=== PATIENT | female | born 1985 | race Caucasian/White ===

== ENCOUNTER → 2016-07-31 | Outpatient (CLI) | payer OTHER | LOC: LAB 10:39 | PROVIDERS: ATTEND Family Medicine | DX: N91.2 Amenorrhea, unspecified (principal) | CPT/HCPCS: 36415; 84702 ==

== ENCOUNTER → 2016-08-02 | Outpatient (CLI) | payer OTHER | LOC: LAB 11:47 | PROVIDERS: ATTEND Family Medicine | DX: N91.2 Amenorrhea, unspecified (principal); Z32.01 Encounter for pregnancy test, result positive | CPT/HCPCS: 36415; 84702 ==

== ENCOUNTER → 2016-08-08 | Outpatient (CLI) | payer OTHER ==
--- NOTE | 2016-08-08 15:42 | DI ---
US OB TRANSVAGINAL,08/08/2016 12:40 PM: Clinical History: Amenorrhea Previous Exam: April 25, 2011 Findings: Multiple transabdominal and endovaginal grayscale and color Doppler sonographic images are obtained t hrough the pelvis demonstrating a normal-appearing uterus measuring 8.6 x 4.4 x 5.1 cm with a gestati onal sac measuring 5 mm and corresponding with an estimated gestational age of 5 weeks zero days. There is also a cystic area adjacent to the gestational sac which most likely represents a subchorion ic hemorrhage. A few nabothian cysts are seen within the cervix. The ovaries were not seen. There was no free fluid identified. There were no detectable Doppler heart tones within the fetus and no visible pole at this time. Impression: 1. Gestational sac with no visible pole at this time.
== END ==
LOC: US 12:37
PROVIDERS: ATTEND Family Medicine
DX: Z36 Encounter for antenatal screening of mother (principal)
CPT/HCPCS: 76801; 76817

== ENCOUNTER → 2016-08-19 | Outpatient (CLI) | payer OTHER ==
--- NOTE | 2016-08-19 11:48 | DI ---
OBSTETRICAL ULTRASOUND, 08/19/2016 8:44 AM: Clinical History: Verify dates. Previous Exam: 08/08/2016. ADJUSTED LMP FROM THE PRIOR EXAM: 07/04/2016. There is a single IUP currently in unstable position. Amnionic fluid content is normal. heart r ate apparently was seen by the technologist at the heart rate was not recorded. Attempts at documenti ng cardiac activity with Doppler ultrasound was not successful. I was in the room at the time o f the Doppler scanning attempts. The yolk sac is visualized. Neither ovary is visualized but the adne xal regions are normal. CRL measurement is 5 mm. This measurement corresponds to an EGA value of 6 we eks 2 days. The US EDC is 04/12/2017.. EDC by adjusted LMP from the prior exam is 04/10/2017. Readin. There is a single IUP in unstable presentation with normal amniotic fluid content. The hear t rate currently was identified by the technologist, but could not be verified with color Doppler ult rasound when I was present. A followup study in one week is recommended to document viability. 2. The composite EGA is 6 weeks 2 days with an ultrasound EDC of 04/12/2017.
== END ==
LOC: US 08:39
PROVIDERS: ATTEND Family Medicine
DX: Z36 Encounter for antenatal screening of mother (principal)
CPT/HCPCS: 76801; 76817

== ENCOUNTER → 2016-08-19 | Outpatient (CLI) | payer OTHER | LOC: LAB 14:49 | PROVIDERS: ATTEND Family Medicine | DX: O36.80X0 Pregnancy with inconclusive fetal viability, not applicable or unspecified (principal) | CPT/HCPCS: 36415; 84702 ==

== ENCOUNTER → 2016-08-28 | Outpatient (CLI) | payer OTHER ==
--- NOTE | 2016-08-28 14:29 | DI ---
LIMITED OBSTETRICAL ULTRASOUND, 08/28/2016 1:26 PM Clinical History: Assess viability of . The previous study showed absent heart rate. Previous Exam: 08/19/2016. ADJUSTED LMP: 07/04/2016. There is a single IUP, but no heart rate is demonstrable. On the previous study, the yolk sac was wel l-defined on this study, the yolk sac appears collapsed. An estimated crown-rump length measurement i s 4 mm and this is actually smaller than on the previous study. In addition, the gestational sac size measurement for today is 16 x 16 x 18 mm and this barely shows any growth since the last exam. Reading: demise in the first trimester of .
== END ==
LOC: US 13:18
PROVIDERS: ATTEND Family Medicine
DX: O36.80X0 Pregnancy with inconclusive fetal viability, not applicable or unspecified (principal)
CPT/HCPCS: 76815

== ENCOUNTER → 2016-09-02 | Outpatient (CLI) | payer OTHER | LOC: MOB LAB 11:31 | PROVIDERS: ATTEND Family Medicine | DX: O03.9 Complete or unspecified spontaneous abortion without complication (principal) | CPT/HCPCS: 36415; 84702 ==

== ENCOUNTER → 2016-09-09 | Outpatient (CLI) | payer OTHER ==
--- NOTE | 2016-09-09 12:06 | DI ---
US PELVIC COMPLETE (NON OB),09/09/2016 8:42 AM: Clinical History: Miscarriage Previous Exam: None at this facility. Findings: Multiple transabdominal grayscale and color Doppler sonographic images are obtained through the pelvi s demonstrating a slightly heterogeneous uterus measuring 11.0 x 6.8 x 5.1 cm with an endometrial str ipe measuring 22 mm. The ovaries were normal with normal Doppler flow. There is no free fluid. Impression: Thickened, slightly heterogeneous endometrial stripe. This could represent retained products. Correla te clinically.
== END ==
LOC: US 08:39
PROVIDERS: ATTEND Family Medicine
DX: O03.9 Complete or unspecified spontaneous abortion without complication (principal)
CPT/HCPCS: 76856

== ENCOUNTER 2016-09-12 17:30 | Observation (INO) | payer OTHER ==
[2016-09-12] MEDS: Sodium Chloride 0.9% 1,000 ML PRIMARY IV ONE ×2 (17:52→19:10)
[2016-09-12] MEDS ORDERED: ONDANSETRON 4 MG/2 ML VIAL ONE (18:04)
[2016-09-12] MEDS: ONDANSETRON 4 MG/2 ML VIAL IVP ONE ×2 (18:05→19:10)
[2016-09-12 18:14] LABS: BASOPHILS # (AUTO) 0.06 10*3/UL; BASOPHILS % (AUTO) 0.4 % (0-1); EOSINOPHILS % (AUTO) 0.7 % (0-8); HEMOGLOBIN 13.4 g/dL (12.0-16.0); LYMPHOCYTES # (AUTO) 4.65 10*3/uL; MEAN CORPUSCULAR HGB CONC 34.4 g/dL (33-37); MEAN CORPUSCULAR VOLUME 87.2 FL (81-99); MEAN PLATELET VOLUME 9.1 FL (7.4-12.2); MONOCYTES # (AUTO) 0.64 10*3/UL (0.3-0.8); MONOCYTES % (AUTO) 4.6 % (5-15); NEUTROPHILS # (AUTO) 8.49 10*3/UL; NEUTROPHILS % (AUTO) 60.7 % (50-80); RED BLOOD COUNT 4.47 10^6/uL (4.20-5.40)
[2016-09-12 18:15] LABS: PLATELET MORPHOLOGY COMMENT NORMAL MORPHOLOGY (NORM); RBC MORPHOLOGY COMMENT NORMAL MORPHOLOGY (NORM); WBC MORPHOLOGY COMMENT NORMAL MORPHOLOGY (NORM)
[2016-09-12] MEDS ORDERED: MORPHINE SULFATE 4 MG/1 ML IVP ONE (19:00)
[2016-09-12] MEDS ORDERED: MORPHINE SULFATE 4 MG/1 ML ONE (19:09)
[2016-09-12] MEDS ORDERED: Lactated Ringers 1,000 ML PRIMARY IV ONE (19:10)
[2016-09-12] MEDS ORDERED: SUCCINYLCHOLINE CHLORIDE 20 MG/1 ML - 10 ML ONE ×2 (19:54)
[2016-09-12] MEDS ORDERED: KETAMINE 100 MG/1 ML - 5 ML ONE (19:55)
[2016-09-12] MEDS ORDERED: MIDAZOLAM 5 MG/1 ML ONE (19:55)
--- NOTE | 2016-09-12 20:00 | CONSULT ---
Consult Note - Consult Consult Date: 09/12/16 Reason for Consult: incomplete with vaginal bleeding Requesting Physician: Dr. Borden Primary Care Provider: Richy Castro MD - History of Present Illness History of Present Illness: The patient is a 31-year-old status post a missed AB around 8 weeks' gestation who was prescribed Cytotec on 08/29/2016 and passed tissue on 2016. Patient stopped bleeding and was doing well. Patient did have an ultrasound on 09/09/2016 and was informed that her ultrasound was normal. However, today the patient was at work and passed a large blood clot and has been bleeding ever since. In the emergency room tonight the patient went through 20 pads. The emergency room physician examined the patient and there was just blood flowing from the patient's cervix. The patient feels slightly lightheaded. The patient has been tachycardic in the 110s to 120. No fever or chills. Past medical history without hypertension or diabetes. Past surgical history 1 and vaginal delivery The patient is allergic to clindamycin with an anaphylactic reaction. OB history without complications of the or vaginal delivery. No tobacco, no alcohol no drugs. Past Medical History Tobacco Use: Never Smoker Substance Use Type: None Medication / Allergies Home Medications: Home Medications Medication Instructions Recorded Confirmed Type Desogestrel-Ethinyl Estradiol 1 tab PO DAILY #28 tab 04/18/14 Clinic [Desogen 28 Day Tablet] Hydrocodone Bit/Acetaminophen 1 - 2 tab PO Q4-6H #30 tab 09/12/16 Clinic [[place] 7.5-325 Tablet] Allergies/Adverse Reactions: Allergies Allergy/AdvReac Type Severity Reaction Status Date / Time clindamycin Allergy SWELLING Verified 09/12/16 17:57 Exam - Vitals Vital Signs: Vital Signs Temperature 98.5 F Temperature Source Temporal Artery Scan Pulse Rate [Pulse Oximeter 123 Right] Respiratory Rate 20 Blood Pressure [Left Arm] 106/82 Pulse Ox 97 Oxygen Delivery Method Room Air Height 5 ft 8 in Weight 192 lb - General General Appearance: POSITIVE: No Acute Distress, Cooperative - Respiratory Respiratory Exam: POSITIVE: Clear to Auscultation - Bilaterally - Cardiovascular Cardiovascular Exam: POSITIVE: Tachycardia - GI/Abdominal GI/Abdominal Exam: POSITIVE: Normal Bowel Sounds, Non Tender (Except suprapubically the patient was slightly tender. No guarding or rebound.), Non Distended, Soft - Rectal Rectal Exam: POSITIVE: Deferred - Exam: POSITIVE: Vaginal Bleeding (Speculum exam not done by me since I will examine her in the operating room and the ER physician did a speculum exam and there was positive bleeding from the cervix.) Results - Labs CBC and BMP: 09/12/16 17:52 Labs - Last 24 Hours: Laboratory Results 09/12/16 Range/Units 17:52 WBC 13.98 H (4.8-10.8) 10^3/uL RBC 4.47 (4.20-5.40) 10^6/uL Hgb 13.4 (12.0-16.0) g/dL Hct 39.0 (37.0-47.0) % MCV 87.2 (81-99) FL MCH 30.0 (27-31) PG MCHC 34.4 (33-37) g/dL RDW Std Deviation 42.6 (39-50) fL RDW Coeff of Zev 13.8 (11.5-14.5) % Plt Count 409 H (140-350) 10*3/uL MPV 9.1 (7.4-12.2) FL Immature Gran % (Auto) 0.3 (0-5) % Neut % (Auto) 60.7 (50-80) % Lymph % (Auto) 33.3 (10-50) % [place] % (Auto) 4.6 L (5-15) % Eos % (Auto) 0.7 (0-8) % Baso % (Auto) 0.4 (0-1) % Immature Gran # (Auto) 0.04 10*3/UL Neut # (Auto) 8.49 10*3/UL Lymph # (Auto) 4.65 10*3/uL [place] # (Auto) 0.64 (0.3-0.8) 10*3/UL Eos # (Auto) 0.10 10*3/UL Baso # (Auto) 0.06 10*3/UL WBC Morphology Comment Normal morphology (NORM) Plt Morphology Comment Normal morphology (NORM) RBC Morph Comment Normal morphology (NORM) PT 10.2 (9.7-11.4) secs INR 0.99 (0.00-5.90) N/A APTT 26.0 (22.6-31.3) SECS Assessment and Plan - Assessment / Plan Additional Assessment/Plan Details: Assessment: Incomplete AB status post Cytotec administration with being prescribed on 08/29/2016 and the patient passed some tissue on 09/02/2016. The patient did have a repeat ultrasound on 09 September which showed an endometrial stripe of 22 mm and possible retained products of conception. The patient had an ultrasound this evening which showed an endometrial stripe of 17 mm with the tissue at the fundus. Previously, the patient's uterus measured 11 x 7 x 5 cm on 09/09/2016. The patient is Rh+. The patient's initial hemoglobin tonight was 13.9 Plan: The risks, benefits, alternatives and indication of a suction D&C were discussed with the patient in detail. We discussed the risk of infection, bleeding, pain, hemorrhage, blood transfusion with associated risks, damage to bowel, bladder, nerve, vessel, if uterine perforation were to occur or if bleeding continues and the patient would need a hysterectomy. We did discuss that the patient would not be able to conceive again and have more children naturally if a hysterectomy was performed. The patient expressed understanding and the consent form was signed. The consent form was also signed for blood. The operating room crew was called in and the operating room is getting ready currently. Anesthesia is aware of the patient's bleeding. The patient has been typed and crossed for 2 units of blood. Anesthesia may give blood intraoperatively depending upon the patient's symptoms. The patient does not have hypertension or asthma and we may have to get Cytotec , Hemabate, or Methergine and possibly Pitocin although Pitocin receptors this early in gestation are not usually active.
[2016-09-12 20:10] LABS: BLOOD UREA NITROGEN 7 mg/dL (7-22); BUN/CREATININE RATIO 8.75 (6-20); CALCIUM 9.2 mg/dL (8.7-10.7); EST GLOMERULAR FILTRATION > 60 (>60 ml/min/1.73m(2)); SERUM ALBUMIN 4.3 g/dL (3.5-4.8)
[2016-09-12] MEDS ORDERED: MISOPROSTOL 200 MCG TABLET ONE (20:14)
[2016-09-12] MEDS ORDERED: fentaNYL Inj 100 MCG/2 ML VIAL ONE (20:16)
[2016-09-12] MEDS ORDERED: PHENYLEPHRINE 10,000 MCG/1 ML VIAL ONE (20:23)
[2016-09-12] MEDS ORDERED: Sodium Chloride 0.9% 100 ML IV ONE (20:24)
[2016-09-12] MEDS ORDERED: METHYLERGONOVINE MALEATE 0.2 MG/1 ML VIAL IM ONE (20:44)
[2016-09-12] MEDS ORDERED: MISOPROSTOL 200 MCG TABLET RECTAL ONE (20:54)
[2016-09-12 21:11] LABS: HEMATOCRIT 27.5 % (37.0-47.0); HEMOGLOBIN 9.2 g/dL (12.0-16.0)
[2016-09-12] MEDS ORDERED: ATROPINE SULFATE 0.4 MG/1 ML VIAL IVP PRN (21:12)
[2016-09-12] MEDS ORDERED: Ondansetron ODT Tab 8 MG TAB PO PRN (21:12)
[2016-09-12] MEDS ORDERED: fentaNYL Inj 100 MCG/2 ML VIAL IVP PRN (21:12)
[2016-09-12] MEDS ORDERED: NORMAL SALINE 10 ML SYRINGE FLUSH IVP PRN ×2 (21:12→21:58)
[2016-09-12] MEDS ORDERED: Lactated Ringers 1,000 ML PRIMARY IV SCH (21:15)
--- NOTE | 2016-09-12 21:22 | DI ---
US PELVIC LIMITED (NON-OB),09/12/2016 6:08 PM: Clinical History: Heavy bleeding and miscarriage on September 02. Previous Exam: September 09, 2016 Findings: Multiple grayscale and color Doppler sonographic images are obtained transabdominally through the pel vis, and demonstrate a normal-appearing uterus with some slightly heterogeneous echogenicity within t he endometrium. The endometrial stripe measures 17 mm. The overlying urinary bladder is unremarkable. The gestational sac seen on the prior exam has involuted and is not visible on today's exam. Impression: Still some residual heterogeneity within the endometrial canal most consistent with progressive misca rriage.
[2016-09-12] MEDS: HYDROmorphone 2 MG/1 ML IVP PRN ×2 (21:25→21:32)
--- NOTE | 2016-09-12 21:28 | OB.OP.NOTE ---
Operative Report Surgeon: Bishnu Superintendent [employer]: Paco Villalta MD Anesthesia Type: General Anesthesia Provider: Chrissy Sanz CRNA (With LMA) Surgery Date: 09/12/16 Preoperative Diagnosis: Incomplete AB. Vaginal bleeding. History of missed AB with Cytotec administration on 08/29/2016 and then expulsion of some tissue on 09/02/2016. Then heavy vaginal bleeding today Postoperative Diagnosis: Same Procedure: Exam under anesthesia. Suction D&C Estimated Blood Loss (mL): 100 Fluids: 2000 mL normal saline in the emergency room. 1000 mL in operating room. 100 mL of urine by catheter in operating room. Mefoxin 2 g IV prior to and at the beginning of the suction D&C. Methergine 0.2 mg IM after suction D& C. Cytotec 800 g rectally after D&C Complications: None apparent No evidence of uterine perforation during suction D&C Findings at Surgery: Exam under anesthesia showed anteverted uterus The uterus sounded to 10.5 cm Tissue was obtained with suction D&C There was a good crigh in all 4 quadrants at the completion of the D&C Minimal bleeding at the completion of the D&C Indications for the Procedure: The patient is a 31-year-old who had a missed AB at 8 weeks and was prescribed Cytotec on 08/29/2016. The patient had passage of tissue on 2016 and then a follow-up ultrasound on 09/09/2016 which showed an endometrial stripe of 2.2 cm and the possibility of retained products of conception. The patient presented today after starting to bleed with clots at 1600 hrs. today and the patient continued to bleed in the emergency room. The patient was bleeding quite heavily and 20 pads were changed in the emergency room. An ultrasound was completed which showed retained products of conception at the fundus. Dr. Villalta and I were consulted from the emergency room. The risks, benefits, alternatives and indications of a suction D&C were discussed with the patient. The consent form was signed and the patient was brought to the operating room. Description of Procedure: The patient was brought to the operating room and underwent general anesthesia with LMA. The patient was prepped and draped sterilely. A timeout was completed and the patient and procedure was identified. A straight catheter was used to obtain about 100 mL of urine. A weighted speculum was placed posteriorly and a Cr retractor was placed anteriorly and the cervix was visualized and grasped with a single-tooth tenaculum on the anterior lip of the cervix. A uterine sound was used to sound the uterus and was 10.5 cm. There was no evidence of uterine perforation. A #9 curved suction curette was requested. A #30 Hanks dilator was used and the patient was already dilated to a 30 Rei dilator. The #9 curved curet was used after testing the suction machine and the suction was set around 35. The #9 curved curet was used in the usual fashion and tissue was obtained. There was no evidence of uterine perforation. With several passes, tissue was obtained. Actually, a significant amount of products of conception was obtained. At no time was there any evidence of uterine perforation. A sharp curette was then used to gently curet all 4 quadrants of the lining of the uterus. There was no evidence of uterine perforation. There was a good crigh in all 4 quadrants. I did use the #9 curved curet 1 more time and a small amount of tissue was obtained around 3:00 and then the curette was used again and there was a good crigh and all 4 quadrants and the procedure was completed. I requested that anesthesia administer Methergine 0.2 mg IM. The single-tooth tenaculum was removed and the weighted speculum was removed and a bimanual exam was completed and the uterus had decreased in size. There was a small amount of bleeding from the tenaculum site and even after pressure was held the tenaculum site on the right side had some bleeding and I put a [id number] suture of 4-0 Vicryl suture using an SH 1 needle. This allowed for hemostasis. By that time hemostasis had occurred from the tenaculum site on the patient's left side of her anterior lip of the cervix. There was minimal bleeding from the cervix itself. The procedure was completed. Cytotec 800 g rectally was administered to continue to have the uterus contract for hemostasis. The patient was awakened from her general anesthesia with LMA. The patient was brought to the PACU in stable condition. During the procedure, the patient did not receive blood. Anesthesia thought that her vital signs and pulse were stable. An H&H would be obtained in the PACU. The patient will be observed overnight on the MSU and a CBC would be checked in the morning also. If the patient becomes tachycardic or hypotensive, blood will be administered. Abdominal exam would also be performed to ensure the patient was not bleeding and her abdomen. Of note, the patient did receive Mefoxin 2 g IV prior to the procedure and just at the beginning of the procedure. Sponge lap and needle counts were correct 2. Plan: The patient was recover in the PACU and then the MSU overnight. A CBC would be obtained in the morning. The patient will be observed.
[2016-09-12] MEDS ORDERED: KETOROLAC 15 MG/1 ML VIAL IVP ONE (21:30)
[2016-09-12] MEDS ORDERED: KETOROLAC 30 MG/1 ML VIAL ONE (21:37)
--- NOTE | 2016-09-12 22:09 | PDOC(PROG) ---
Subjective Post Op Day: 0 Pain Management: PO (And IV Dilaudid in PACU and IV Toradol and PACU) Baires Catheter: No Flatus: No Diet: Clear Liquids (Advance as tolerated) Ambulating: No Concerns / Additional Information: Patient is hungry and patient would like to take a shower. Patient states she feels much better currently. Not lightheaded in bed. Objective - General General Appearance: POSITIVE: No Acute Distress, Cooperative - Abdomen Other Abdominal Exam Details: Abdomen soft with appropriate tenderness without guarding or rebound Assesstment / Plan Assessment / Plan: Postoperative day #0 status post suction D&C for incomplete AB. Patient's H&H is 9 and 27.5 postoperatively in the PACU. [facility]. She would like to take a shower. The patient's blood pressure was good and her pulse was about 107. Pulse ox was good Plan: Check a CBC in the morning Toradol 15 mg IV every 6 hours starting at 5:00 in the morning since patient received 1 dose in the PACU Patient may shower in a couple hours in a shower chair with assistance. We discussed the fact that she may be lightheaded once the warm water dilates her vessels but patient is insistent currently that she needs to take a shower soon secondary to all the blood staining on her lower extremities from the bleeding this afternoon and this evening. I expressed understanding but would like her to wait a couple hours and then have assistance and use a shower chair Continue to follow patient closely. We did discuss that her H&H may decrease even more and she may need blood depending upon what her H&H is in the morning. Patient expressed understanding.
[2016-09-12] MEDS: Lactated Ringers 1,000 ML PRIMARY IV SCH (22:40)
[2016-09-12] MEDS: HYDROcodone-APAP 5 MG -325 MG TABLET PO PRN (22:40)
[2016-09-12] MEDS ORDERED: LIDOCAINE W/ SODIUM BICARB 0.5 ML SYR SUBD PRN (23:07)
[2016-09-13] MEDS: HYDROcodone-APAP 5 MG -325 MG TABLET PO PRN ×5 (03:01→19:09)
[2016-09-13] MEDS: ONDANSETRON 4 MG/2 ML VIAL IVP PRN ×4 (03:02→15:00)
[2016-09-13] MEDS: KETOROLAC 15 MG/1 ML VIAL IVP SCH ×4 (04:50→19:15)
[2016-09-13 05:14] LABS: BASOPHILS # (AUTO) 0.04 10*3/UL; BASOPHILS % (AUTO) 0.3 % (0-1); EOSINOPHILS # (AUTO) 0.07 10*3/UL; EOSINOPHILS % (AUTO) 0.5 % (0-8); HEMATOCRIT 25.8 % (37.0-47.0); HEMOGLOBIN 8.5 g/dL (12.0-16.0); LYMPHOCYTES # (AUTO) 3.72 10*3/uL; MEAN CORPUSCULAR HEMOGLOBIN 29.8 PG (27-31); MEAN CORPUSCULAR HGB CONC 32.9 g/dL (33-37); MEAN CORPUSCULAR VOLUME 90.5 FL (81-99); MEAN PLATELET VOLUME 9.3 FL (7.4-12.2); MONOCYTES # (AUTO) 0.68 10*3/UL (0.3-0.8); MONOCYTES % (AUTO) 5.3 % (5-15); NEUTROPHILS # (AUTO) 8.35 10*3/UL; NEUTROPHILS % (AUTO) 64.6 % (50-80); RED BLOOD COUNT 2.85 10^6/uL (4.20-5.40)
[2016-09-13 05:15] LABS: PLATELET MORPHOLOGY COMMENT NORMAL MORPHOLOGY (NORM); RBC MORPHOLOGY COMMENT NORMAL MORPHOLOGY (NORM); WBC MORPHOLOGY COMMENT NORMAL MORPHOLOGY (NORM)
--- NOTE | 2016-09-13 06:12 | PDOC ---
Female Problem HPI - General Chief Complaint: Vag Complaint/Bleed, <20WK IUP Stated Complaint: vaginal bleeding,passing clots Date Seen by Provider: 09/12/16 Time Seen by Provider: 17:50 Source: POSITIVE: Patient Exam Limitations: POSITIVE: No limitations Nurse's Notes Reviewed & Considered: Yes - History of Present Illness Initial Comments: The patient is a 31-year-old female. She presents to the emergency room complaining of heavy vaginal bleeding. 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 She states that she has used 24 pads since the onset of her bleeding. She also complains of abdominal cramping. She had a spontaneous miscarriage, which was assisted by Cytotec for 4 days, on September 02. She states that she has had some spotting since. She states she had an ultrasound done 3 days ago and the patient states that she was told that this study was normal. However, review of the radiologist's report of this study indicated that it was compatible with retained products of conception. Patient states that she has felt "lightheaded ", but has had no syncope. She's been nauseated. No head or chest pain. She is not taking any medications except"some pain meds". Body Location Affected: REPORTS: Genitalia (Heavy vaginal bleeding 10 days after miscarriage as above) Timing: REPORTS: Abrupt Duration: 1-3 hours (Approximately 1-1/2 hours) Severity: Severe Quality: REPORTS: Cramping (Some lower abdominal cramping) Context: REPORTS: Recent Miscarriage Location of Pain: REPORTS: Pelvic Cramping Vaginal Bleeding: REPORTS: Abnormal Bleeding, More Severe Than Periods, Passing Clots. DENIES: Passing Tissue : REPORTS: Abnormal Periods, Other (Spontaneous miscarriage assisted by Cytotec 10 days SENIOR RESEARCH FELLOW) Sexual History: REPORTS: Active Urinary Symptoms: DENIES: Blood in Urine, Frequent Urination, Discomfort w/ Urination, Burning w/ Urination, Urinary Urgency, Painful Urination, Other Discharge: DENIES: Vaginal Discharge, Vag Fluid Leak- , Breast Discharge, Other Similar Symptoms Previously: No Recent Care Received: REPORTS: Recently Seen, Treated by MD (As above) Any Prior Injuries Related to Current Complaint?: No - Patient Home Medications Home Medications: Home Medications Desogestrel-Ethinyl Estradiol [Desogen 28 Day Tablet] 1 tab PO DAILY #28 tab 08/27 Hydrocodone Bit/Acetaminophen [[place] 7.5-325 Tablet] 1 - 2 tab PO Q4-6H #30 tab 09/12/16 - Patient Allergies Allergies/Adverse Reactions: Allergies Allergy/AdvReac Type Severity Reaction Status Date / Time clindamycin Allergy SWELLING Verified 09/12/16 22:25 Past Medical History - heen HEENT History: Denies History Cardiovascular History: Denies History Respiratory History: Denies History Gastrointestinal History: Denies History, Gallbladder Disease Additional Gastrointestinal History: Had gallbladder removed Genitourinary History: Denies History Endocrine History: Denies History, Other (please comment) Additional Endocrine History: INSULIN RESISTANCE Musculoskeletal History: Denies History Prosthesis or Implant: No Neurological History: Denies History Blood Disorders: Denies History Psychiatric History: Denies History History of Sexually Transmitted Diseases: No LMP: 06/23/16 Obstetrical History: Delivery, Other (please comment) Additional Obstetrical History: recent spontaneous : 3 Para: 3 Cancer History: Denies History In Past Year Been Physically Harmed or Verbally Threatened: No History of MDRO: No History of Other Communicable Diseases: No Tobacco Use: Never Smoker Alcohol Use: Rarely Substance Use Type: None Previous Surgical History: Yes Type / Date of Surgery: . gallbladder Anesthesia Reactions: No Malignant Hyperthermia: No Significant Family History: Asthma Additional Family History: Mother has asthma Past Medical History Reviewed: Reviewed - No Changes ROS - Limitations ROS Limitations: No Limitations Constitution: REPORTS: Denies Symptoms Cardiovascular: REPORTS: Denies Cardiac Symptoms Respiratory: REPORTS: Denies Resp Symptoms Neurological: REPORTS: Denies Neuro Symptoms Gastrointestinal: REPORTS: Denies GI Symptoms Endocrine: REPORTS: Denies Symptoms Musculoskeletal: REPORTS: Denies MS Symptoms Genitourinary: REPORTS: Other (Heavy post miscarriage vaginal bleeding as above) Eyes: REPORTS: Denies Symptoms ENT: REPORTS: Denies Symptoms Skin: REPORTS: Denies Skin Symptoms Lympathic: REPORTS: Denies Lympathic Symptoms Immunologic: POSITIVE: Denies Symptoms Psychiatric: POSITIVE: Denies Psych Symptoms Female Genitourinary Exam - General Appearance General Appearance: POSITIVE: Alert, Cooperative, No Acute Distress, No Evidence of Trauma, Anxious - HEENT HEENT: POSITIVE: Head Inspection Nml, Eyes Inspection Nml, Ears Inspection Nml, Nose Inspection Nml, Oral/Dental Inspect. Nml, Pharynx Inspect. Nml, PERRL, EOMI - Neck Neck: POSITIVE: Normal Inspection, No Apparent Injury - Respiratory Respiratory: POSITIVE: No Respiratory Distress, Breath Sounds Normal, Chest Non- Tender - Cardiovascular Cardiovascular: POSITIVE: Regular Rate and Rhythm, Heart Sounds Normal, Equal Pulses, Strong Pulses Peripheral Pulses: Radial (R): 2+, Radial (L): 2+ - Abdomen Abdomen: POSITIVE: Soft, Normal Bowel Sounds, Non-Tender, No Distention, No Organomegaly - Back Back: POSITIVE: Normal Inspection - Genital / Rectal Pelvic Exam: POSITIVE: Cervix (Open), Vagina (Prominent bleeding per vagina; many clots with active bleeding), Uterus (Nontender), Adnexa (Nontender), External Exam Normal, Vaginal Bleeding, Blood In Vaginal Vault, Clots in vaginal Vault, Cervical Dilation, Enlarged Uterus. NEGATIVE: Speculum Exam Normal (Speculum examination shows many clots in the vagina and prominent active vaginal bleeding; visualization of cervix difficult due to extent of ongoing bleeding), Tissue Present in Cervix, Tissue Present in Vagina, Cervical Motion Tender, Adnexal Tenderness, Adnexal Mass, Tender Uterus, Perineal Hematoma - Skin Skin: POSITIVE: Intact, Normal For Race, Warm, Dry, No Rash - Extremities Extremity: Non-Tender: (All Extremities), Normal ROM: (All Extremities), Normal Inspection: (All Extremities) - Neurological / Psychological Neurological: POSITIVE: Affect Apporpriate, Oriented X3, 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 Lab Results Reviewed: Yes Lab Results:: Laboratory Results 09/12/16 09/12/16 09/12/16 Range/Units 17:52 19:10 21:08 WBC 13.98 H (4.8-10.8) 10^3/uL RBC 4.47 (4.20-5.40) 10^6/uL Hgb 13.4 9.2 L (12.0-16.0) g/dL Hct 39.0 27.5 L (37.0-47.0) % MCV 87.2 (81-99) FL MCH 30.0 (27-31) PG MCHC 34.4 (33-37) g/dL RDW Std Deviation 42.6 (39-50) fL RDW Coeff of Zev 13.8 (11.5-14.5) % Plt Count 409 H (140-350) 10*3/uL MPV 9.1 (7.4-12.2) FL Immature Gran % (Auto) 0.3 (0-5) % Neut % (Auto) 60.7 (50-80) % Lymph % (Auto) 33.3 (10-50) % Louisa % (Auto) 4.6 L (5-15) % Eos % (Auto) 0.7 (0-8) % Baso % (Auto) 0.4 (0-1) % Immature Gran # (Auto) 0.04 10*3/UL Neut # (Auto) 8.49 10*3/UL Lymph # (Auto) 4.65 10*3/uL Louisa # (Auto) 0.64 (0.3-0.8) 10*3/UL Eos # (Auto) 0.10 10*3/UL Baso # (Auto) 0.06 10*3/UL WBC Morphology Comment Normal morphology (NORM) Plt Morphology Comment Normal morphology (NORM) RBC Morph Comment Normal morphology (NORM) PT 10.2 (9.7-11.4) secs INR 0.99 (0.00-5.90) N/A APTT 26.0 (22.6-31.3) SECS Sodium 138 (135-145) meq/L Potassium 3.6 L (3.8-5.2) meq/L Chloride 103 (98-112) meq/L Carbon Dioxide 21 L (23-33) meq/L Anion Gap 14 (5-20) BUN 7 (7-22) mg/dL Creatinine 0.8 (0.50-1.20) mg/dL Estimated GFR > 60 (>60 ml/min/1.73m(2)) BUN/Creatinine Ratio 8.75 (6-20) Glucose 116 H (78-110) mg/dL Calculated Osmolality 284.0 (267-292) mOsm/kg Calcium 9.2 (8.7-10.7) mg/dL Total Bilirubin 1.0 (0.3-1.2) mg/dL AST 51 H (8-39) IU/L ALT 34 (9-52) IU/L Alkaline Phosphatase 59 (38-126) IU/L Total Protein 7.5 (6.1-8.0) g/dL Albumin 4.3 (3.5-4.8) g/dL Globulin 3.3 (2.50-4.10) g/dL Albumin/Globulin Ratio 1.30 (1.3-2.0) mg/g Blood Type O POSITIVE Antibody Screen Negative Crossmatch See Detail - Patient's Progress Pain Medication Addressed: POSITIVE: Yes (Morphine, 4 mg IV along with 4 mg of Zofran IV) School/Work Release Addressed: POSITIVE: Not Applicable Re-Examine Time: 18:30 Re-Examine Comment: Results of ultrasound discussed with patient, patient did achieve some relief of her pain with morphine. Status: POSITIVE: Unchanged, Re-Examined Rhogam Given: No (blood type is O+) - Consult Consult (If Yes, Name of Consulting MD & Time Called): Yes (Dr. Villalta and Dr. Goetz, who LAST TRIMMER, 1830) Consulting MD will see pt:: POSITIVE: [place] ED, [facility] [place] Ad[place] Counseled: POSITIVE: Patient, Family, RE: Lab Results, RE: DX, RE: Need for F/U Patient Care Time - Estimated PCT Patient Care Time (In Minutes): 50 Vital Signs - Recent Vital Signs Vital Signs: Vital Signs (Last 8 hours) Temp Pulse Pulse Resp BP BP Pulse Ox 09/13/16 04:50 98.2 F 104 H 18 99/55 93 09/13/16 00:02 97.4 F 100 20 103/59 96 09/12/16 23:06 97.6 F 102 H 20 109/55 94 09/12/16 22:34 98.3 F 104 H 18 103/63 94 09/12/16 22:08 100 18 - VS Reviewed Vital Signs Reviewed: Yes Discharge Clinical Impression: Abnormal vaginal bleeding, Retained products of conception after delivery with complications, Nausea and vomiting Discharge Disposition: Transferred to OR Condition: Fair Date Decision to Admit to Inpatient: 09/12/16 Time Decision to Admit to Inpatient: 18:45
[2016-09-13] MEDS: Lactated Ringers 1,000 ML PRIMARY IV SCH ×2 (07:07→19:31)
--- NOTE | 2016-09-13 09:49 | CRNA.PROGR ---
Anesthesia Note Anesthesia Progress Note: Up and about. Showered last night. Wants to shower this am. No nausea. Crampy. Little bleeding. Laboratory Results 09/12/16 09/12/16 09/12/16 Range/Units 17:52 19:10 21:08 WBC 13.98 H (4.8-10.8) 10^3/uL RBC 4.47 (4.20-5.40) 10^6/uL Hgb 13.4 9.2 L (12.0-16.0) g/dL Hct 39.0 27.5 L (37.0-47.0) % MCV 87.2 (81-99) FL MCH 30.0 (27-31) PG MCHC 34.4 (33-37) g/dL RDW Std Deviation 42.6 (39-50) fL RDW Coeff of Zev 13.8 (11.5-14.5) % Plt Count 409 H (140-350) 10*3/uL MPV 9.1 (7.4-12.2) FL Immature Gran % (Auto) 0.3 (0-5) % Neut % (Auto) 60.7 (50-80) % Lymph % (Auto) 33.3 (10-50) % [place] % (Auto) 4.6 L (5-15) % Eos % (Auto) 0.7 (0-8) % Baso % (Auto) 0.4 (0-1) % Immature Gran # (Auto) 0.04 10*3/UL Neut # (Auto) 8.49 10*3/UL Lymph # (Auto) 4.65 10*3/uL [place] # (Auto) 0.64 (0.3-0.8) 10*3/UL Eos # (Auto) 0.10 10*3/UL Baso # (Auto) 0.06 10*3/UL WBC Morphology Comment Normal morphology (NORM) Plt Morphology Comment Normal morphology (NORM) RBC Morph Comment Normal morphology (NORM) PT 10.2 (9.7-11.4) secs INR 0.99 (0.00-5.90) N/A APTT 26.0 (22.6-31.3) SECS Sodium 138 (135-145) meq/L Potassium 3.6 L (3.8-5.2) meq/L Chloride 103 (98-112) meq/L Carbon Dioxide 21 L (23-33) meq/L Anion Gap 14 (5-20) BUN 7 (7-22) mg/dL Creatinine 0.8 (0.50-1.20) mg/dL Estimated GFR > 60 (>60 ml/min/1.73m(2)) BUN/Creatinine Ratio 8.75 (6-20) Glucose 116 H (78-110) mg/dL Calculated Osmolality 284.0 (267-292) mOsm/kg Calcium 9.2 (8.7-10.7) mg/dL Total Bilirubin 1.0 (0.3-1.2) mg/dL AST 51 H (8-39) IU/L ALT 34 (9-52) IU/L Alkaline Phosphatase 59 (38-126) IU/L Total Protein 7.5 (6.1-8.0) g/dL Albumin 4.3 (3.5-4.8) g/dL Globulin 3.3 (2.50-4.10) g/dL Albumin/Globulin Ratio 1.30 (1.3-2.0) mg/g Blood Type O POSITIVE Antibody Screen Negative Crossmatch See Detail 09/13/16 Range/Units 04:54 WBC 12.92 H (4.8-10.8) 10^3/uL RBC 2.85 L (4.20-5.40) 10^6/uL Hgb 8.5 L (12.0-16.0) g/dL Hct 25.8 L (37.0-47.0) % MCV 90.5 (81-99) FL MCH 29.8 (27-31) PG MCHC 32.9 L (33-37) g/dL RDW Std Deviation 43.0 (39-50) fL RDW Coeff of Zev 13.5 (11.5-14.5) % Plt Count 273 (140-350) 10*3/uL MPV 9.3 (7.4-12.2) FL Immature Gran % (Auto) 0.5 (0-5) % Neut % (Auto) 64.6 (50-80) % Lymph % (Auto) 28.8 (10-50) % [place] % (Auto) 5.3 (5-15) % Eos % (Auto) 0.5 (0-8) % Baso % (Auto) 0.3 (0-1) % Immature Gran # (Auto) 0.06 10*3/UL Neut # (Auto) 8.35 10*3/UL Lymph # (Auto) 3.72 10*3/uL [place] # (Auto) 0.68 (0.3-0.8) 10*3/UL Eos # (Auto) 0.07 10*3/UL Baso # (Auto) 0.04 10*3/UL WBC Morphology Comment Normal morphology (NORM) Plt Morphology Comment Normal morphology (NORM) RBC Morph Comment Normal morphology (NORM) PT (9.7-11.4) secs INR (0.00-5.90) N/A APTT (22.6-31.3) SECS Sodium (135-145) meq/L Potassium (3.8-5.2) meq/L Chloride (98-112) meq/L Carbon Dioxide (23-33) meq/L Anion Gap (5-20) BUN (7-22) mg/dL Creatinine (0.50-1.20) mg/dL Estimated GFR (>60 ml/min/1.73m(2)) BUN/Creatinine Ratio (6-20) Glucose (78-110) mg/dL Calculated Osmolality (267-292) mOsm/kg Calcium (8.7-10.7) mg/dL Total Bilirubin (0.3-1.2) mg/dL AST (8-39) IU/L ALT (9-52) IU/L Alkaline Phosphatase (38-126) IU/L Total Protein (6.1-8.0) g/dL Albumin (3.5-4.8) g/dL Globulin (2.50-4.10) g/dL Albumin/Globulin Ratio (1.3-2.0) mg/g Blood Type Antibody Screen Crossmatch Anemic. States a little dizzy standing. MD offering transfusion. Pt states she doesn't have time to allow her body to rebuild blood. No apparent anesthetic difficulties. Chrissy Sanz MS, SERVICES ACCOUNT MANAGER
[2016-09-13] MEDS ORDERED: ACETAMINOPHEN 325 MG TABLET PO ONE (11:16)
[2016-09-13] MEDS ORDERED: diphenhydrAMINE 25 MG CAPSULE PO ONE ×2 (11:16→15:35)
[2016-09-13] MEDS ORDERED: Sodium Chloride 0.9% 500 ML PRIMARY IV ONE ×2 (11:16→15:36)
--- NOTE | 2016-09-13 11:24 | PDOC(PROG) ---
Subjective Post Op Day: 1 Pain Management: PO (And IV Toradol) Baires Catheter: No Flatus: Yes Diet: Regular Concerns / Additional Information: The patient is lightheaded even when sitting in bed. She took a shower early this morning and then another one an hour ago and she sat in the chair in the shower. She was lightheaded in the shower. Patient states the nurses of in talking with her about a blood transfusion in the patient states that she thinks she would feel better if she had blood. The patient is eating a regular diet. The patient is not ambulating because she is lightheaded when sitting in bed. Objective - General General Appearance: POSITIVE: No Acute Distress, Cooperative - Cardiovacular Cardiovascular Exam: POSITIVE: Tachycardia (Minimally tachycardic) Extremities: Negative Ck's - Bilaterally - Respiratory Respiratory Exam: POSITIVE: Clear to Auscultation - Bilaterally - Abdomen Bowel Sounds: Present Abdominal Wound Assessment: Asymptomatic (No guarding or rebound but slightly tender suprapubically) - - Additional Details: Orthostatics were completed. Blood pressure lying down was 113/91 and pulse was 92 Blood pressure sitting was 97/54 and pulse was 100 Blood pressure standing was 113/76 and pulse was 100 Assesstment / Plan Assessment / Plan: Assessment: Postoperative day #1 status post suction D&C for incomplete AB with H&H of 8 and 25 this morning. Patient is symptomatic with lightheadedness even when sitting in bed. Orthostatics are not positive but with patient symptomatic with lightheadedness and dizziness just sitting in bed, it will be prudent to administer at least 1 unit of packed red blood cells. Plan: Premedicate with Tylenol 650 mg by mouth and Benadryl 25 mg by mouth 1 unit of packed red blood cells over 2 hours The patient will be reassessed after transfusion. The patient understands that she may feel improved and better after one unit of packed red blood cells or she may require another unit of packed red blood cells. The patient has been previously typed and crossed. An order has been written to transfuse 1 unit. The indications patient's is symptomatic with lightheadedness. The patient expressed understanding with the above plan.
--- NOTE | 2016-09-13 17:54 | PDOC(PROG) ---
Subjective Post Op Day: 1 Pain Management: PO Baires Catheter: No Flatus: Yes Diet: Regular Ambulating: Yes Concerns / Additional Information: The patient feels much better now that she had her second unit of blood. She is not lightheaded. The patient feels very comfortable going home a little later. Objective - General General Appearance: POSITIVE: No Acute Distress, Cooperative - Cardiovacular Cardiovascular Exam: POSITIVE: RRR Extremities: Negative Ck's - Bilaterally - Respiratory Respiratory Exam: POSITIVE: Clear to Auscultation - Bilaterally (Initially a couple crackles in the bases but these cleared with deep breaths), Breathing Non Labored - Abdomen Bowel Sounds: Present (Abdomen soft and appropriately tender without guarding or rebound) Assesstment / Plan Assessment / Plan: Assessment: Postoperative day #1 status post suction D&C for incomplete AB The patient was symptomatic secondary to bleeding prior to the D&C. Her H&H was 8 and 25 and the patient was not orthostatic by blood pressure and pulse from lying to standing but the patient was symptomatic with lightheadedness and dizziness. We discussed at blood transfusion and the patient agreed that she would feel much better. After one unit of blood, the patient was not is dizzy but she was still lightheaded. The patient's blood pressures were slightly lower this afternoon and the patient thought that she would feel much better with one more unit transfused. The patient is now received 2 units of packed red blood cells and the patient states that she feels much better. The patient tolerated the transfusion very well. Plan: I will check a CBC at 1915 hrs. If the patient is feeling well and her H&H is good, the patient will be discharged home around 1930 hrs. The order was written. I asked the nurse to give the patient an incentive spirometer. The patient should be given the usual postoperative instructions. The patient should feel slightly better every day. If the patient gets a fever or chills or increasing abdominal pain, the patient should be evaluated. I have prescribed the following medications for the patient Ibuprofen 800 mg 1 tablet by mouth 3 times a day with food or milk 5 days then 1 tablet 3 times a day as needed. Hydrocodone/Tylenol 1-2 tablets by mouth every 6 hours when necessary pain Colace 100 mg 1 by mouth daily to twice a day when necessary constipation. The patient should keep her stools soft but not extremely loose. Ferrous sulfate 325 mg 1 tablet by mouth twice a day for 4 weeks The patient should follow-up with me next week on Friday for postoperative appointment. The patient should contact us with any questions. The patient should take a multivitamin daily during her childbearing years
[2016-09-13 19:27] LABS: HEMATOCRIT 30.1 % (37.0-47.0); HEMOGLOBIN 9.9 g/dL (12.0-16.0); MEAN CORPUSCULAR HEMOGLOBIN 29.6 PG (27-31); MEAN CORPUSCULAR HGB CONC 32.9 g/dL (33-37); MEAN CORPUSCULAR VOLUME 90.1 FL (81-99); MEAN PLATELET VOLUME 8.6 FL (7.4-12.2); RED BLOOD COUNT 3.34 10^6/uL (4.20-5.40)
[2016-09-13 20:30] VITALS: RESP 18; TEMP 97.9
== END 2016-09-13 19:32 | disposition home or self-care (01) ==
LOC: ER 17:30 → SDSC 19:10 → UNDOADMOB 21:05 → MED/SURG 21:05
PROVIDERS: ADMIT Obstetrics & Gynecology; ATTEND Obstetrics & Gynecology
DX: O03.1 Delayed or excessive hemorrhage following incomplete spontaneous abortion (principal); R42 Dizziness and giddiness
CPT/HCPCS: 36415 ×2; 36430; 59812; 76857; 80053; 85014; 85018; 85025 ×2; 85027; 85610; 85730; 86850; 86900; 86901; 86922; 96361; 96374; 96375; 96376; 99284 ×2; J0694; J1885; J2704; J3010; P9016; Q0163; J0330; J2210; J2250; J2270; J2370; J2405; J7030; J7040; J7050; J7120

== ENCOUNTER → 2016-09-20 | Outpatient (CLI) | payer OTHER ==
[2016-09-20 12:12] LABS: HEMATOCRIT 40.4 % (37.0-47.0); HEMOGLOBIN 13.2 g/dL (12.0-16.0); MEAN CORPUSCULAR HEMOGLOBIN 29.5 PG (27-31); MEAN CORPUSCULAR HGB CONC 32.7 g/dL (33-37); MEAN CORPUSCULAR VOLUME 90.4 FL (81-99); MEAN PLATELET VOLUME 8.8 FL (7.4-12.2); RED BLOOD COUNT 4.47 10^6/uL (4.20-5.40)
[2016-09-20 13:05] LABS: HCG,QUANTITATIVE 158.84 mIU/ML
== END ==
LOC: MOB LAB 10:55
PROVIDERS: ATTEND Family Medicine
DX: Z48.816 Encounter for surgical aftercare following surgery on the genitourinary system (principal); O03.9 Complete or unspecified spontaneous abortion without complication
CPT/HCPCS: 36415; 82728; 83540; 83550; 84702; 85027

== ENCOUNTER → 2017-01-04 | Outpatient (CLI) | payer OTHER | LOC: LAB 09:16 | PROVIDERS: ATTEND Family Medicine | DX: N91.2 Amenorrhea, unspecified (principal) | CPT/HCPCS: 84702 ==

== ENCOUNTER → 2017-01-06 | Outpatient (CLI) | payer OTHER | LOC: LAB 08:36 | PROVIDERS: ATTEND Family Medicine | DX: O09.291 Supervision of pregnancy with other poor reproductive or obstetric history, first trimester (principal) | CPT/HCPCS: 36415; 84702 ==

== ENCOUNTER → 2017-01-14 | Outpatient (CLI) | payer OTHER ==
--- NOTE | 2017-01-14 10:37 | DI ---
US OB LESS THAN 14 WEEKS, US OB TRANSVAGINAL,01/14/2017 8:43 AM: Clinical History: Established gestational age. Previous Exam: None at this facility. Findings: Multiple grayscale and color Doppler sonographic images are obtained through the pelvis transabdomina lly and endovaginally, and demonstrate a single fluid collection within the endometrial stripe with a mean sac diameter of 1.0 cm corresponding with an estimated gestational age of 5 weeks 5 days. A crown-rump length measured 2 mm corresponding with an estimated gestational age of 5 weeks 6 days. Detected Doppler heart tones measure 100 beats per minute. The right ovary measures 3.8 x 1.6 x 2.9 cm with a normal sonographic appearance. Left ovary measured 4.1 x 2.6 x 3.2 cm also with a normal sonographic appearance. Doppler flow is pre served. Impression: Single live intrauterine gestation with estimated gestational age of 5 weeks 6 days.
== END ==
LOC: US 08:39
PROVIDERS: ATTEND Family Medicine
DX: Z36 Encounter for antenatal screening of mother (principal)
CPT/HCPCS: 76801; 76817

== ENCOUNTER → 2017-01-24 | Outpatient (CLI) | payer OTHER ==
--- NOTE | 2017-01-27 09:55 | DI ---
US OB , LIMITED, US OB TRANSVAGINAL,01/24/2017 10:52 AM: Clinical History: Determine viability. Previous Exam: January 14, 2017 Findings: Multiple transabdominal and endovaginal grayscale and color Doppler sonographic images are obtained t hrough the pelvis, and demonstrate a small gestational sac containing a few eccentric and what appear s to be a small pole measuring 11 mm from crown to rump corresponding with an estimated gestati onal age of 7 weeks 2 days. Detected Doppler heart tones measured 144 beats per minute. Impression: Limited evaluation of the pelvis demonstrating a single live intrauterine gestation with estimated ge stational age of 7 weeks 2 days.
== END ==
LOC: US 10:49
PROVIDERS: ATTEND Family Medicine
DX: O36.80X0 Pregnancy with inconclusive fetal viability, not applicable or unspecified (principal)
CPT/HCPCS: 76815; 76817

== ENCOUNTER → 2017-02-04 | Outpatient (CLI) | payer OTHER ==
[2017-02-04 11:18] LABS: BASOPHILS # (AUTO) 0.03 10*3/UL; BASOPHILS % (AUTO) 0.3 % (0-1); EOSINOPHILS % (AUTO) 2.7 % (0-8); HEMATOCRIT 41.2 % (37.0-47.0); HEMOGLOBIN 14.6 g/dL (12.0-16.0); LYMPHOCYTES # (AUTO) 2.69 10*3/uL; MEAN CORPUSCULAR HEMOGLOBIN 30.7 PG (27-31); MEAN CORPUSCULAR HGB CONC 35.4 g/dL (33-37); MEAN CORPUSCULAR VOLUME 86.6 FL (81-99); MEAN PLATELET VOLUME 9.7 FL (7.4-12.2); MONOCYTES # (AUTO) 0.56 10*3/UL (0.3-0.8); MONOCYTES % (AUTO) 5.1 % (5-15); NEUTROPHILS # (AUTO) 7.41 10*3/UL; RED BLOOD COUNT 4.76 10^6/uL (4.20-5.40)
[2017-02-04 11:21] LABS: PLATELET MORPHOLOGY COMMENT NORMAL MORPHOLOGY (NORM); RBC MORPHOLOGY COMMENT NORMAL MORPHOLOGY (NORM); WBC MORPHOLOGY COMMENT NORMAL MORPHOLOGY (NORM)
[2017-02-04 11:54] LABS: HIV ANTIBODY NEGATIVE (N); HIV-1 P24 ANTIGEN NEGATIVE (N)
== END ==
LOC: MOB LAB 09:13
PROVIDERS: ATTEND Family Medicine
DX: Z36 Encounter for antenatal screening of mother (principal); Z3A.09 9 weeks gestation of pregnancy
CPT/HCPCS: 36415; 80081; 86900; 86901; 87088

== ENCOUNTER 2017-08-04 08:12 | Observation (INO) ==
[2017-08-04] MEDS ORDERED: NORMAL SALINE 10 ML SYRINGE FLUSH IVP PRN ×3 (08:38→11:32)
[2017-08-04 09:25] LABS: Hematocrit [HCT] 38.7 % (37.0-47.0); Hemoglobin [HGB] 13.2 g/dL (12.0-16.0); MEAN CORPUSCULAR HEMOGLOBIN 31.1 PG (27-31); MEAN CORPUSCULAR HGB CONC 34.1 g/dL (33-37); MEAN CORPUSCULAR VOLUME 91.3 FL (81-99); MEAN PLATELET VOLUME 9.3 FL (7.4-12.2); RED BLOOD COUNT 4.24 10^6/uL (4.20-5.40)
[2017-08-04 09:45] LABS: BLOOD UREA NITROGEN 9 mg/dL (7-22); SERUM ALBUMIN 3.4 g/dL (3.5-4.8); Uric Acid 4.4 mg/dl (2.5-6.2)
--- NOTE | 2017-08-04 10:56 | DI ---
LIMITED OBSTETRICAL ULTRASOUND, 08/04/2017 8:55 AM Clinical History: Gestational diabetes mellitus. Previous Exam: 07/28/2017. EDC based on early OB US: 09/09/2017. There is a single live IUP currently in vertex presentation. Amnionic fluid content is mildly increas ed for this stage of . Amniotic fluid index is 12.3 cm. activity is observed as follow s: cardiac and extremity. The placenta is anterior corpus and Grade 1. heart rate is 158 beats/ minute and regular. BPD, HC, AC, and FL measurements are 95 mm, 340 mm, 337 mm, and 65 mm, respective ly. These measurements correspond to EGA values of 38 weeks 6 days, 39 weeks 1 day, 37 weeks 5 days, and 33 weeks 4 days, respectively. Composite EGA is 37 weeks 3 days. The US EDC is 08/22/2017. EDC base d on early OB US is 09/09/2017. The BPD, HC, and AC measurements are in the 97-98 percentile, and the FL measurements is in the 13th percentile. LMP percentile is 94%. Estimated weight is 3068 g, p jerry or minus 448 g. Readin. Single live fetus with vertex presentation. Amniotic fluid content is increased for this stage of indicating mild polyhydramnios. Amnionic fluid index is 12.3 cm. Placenta is anterior alexander us and grade 1. 2. The composite EGA is 37 weeks 3 days with an ultrasound EDC of 08/22/2017. Based on the early OB ul trasound, the EDC would be 09/09/2017. 3. LMP percentile is 94%. Estimated weight is 3068 g, plus or minus 448 g. LIMITED OBSTETRICAL ULTRASOUND FOR BIOPHYSICAL PROFILE, 08/04/2017 8:55 AM Clinical History: Nonreactive NST. Previous Exam: None at this facility for this . RAMON: 10.8 cm (the RAMON was repeated for this phase of the study). Respiration Score: 2 Fine Motor Score: 2 Gross Motor Score: 2 Amnionic Fluid Score: 2 Reading: Biophysical Profile Score: 8/8
[2017-08-04] MEDS ORDERED: ONDANSETRON 4 MG/2 ML VIAL IVP PRN (11:32)
[2017-08-04] MEDS ORDERED: LIDOCAINE W/ SODIUM BICARB 0.5 ML SYR SUBD PRN (11:32)
[2017-08-04 12:20] LABS: BILIRUBIN,URINE NEGATIVE (NEG); CLARITY,URINE CLEAR (CLEAR); COLOR,URINE YELLOW (Y); GLUCOSE, URINE (UA) NEGATIVE (NEG); OCCULT BLOOD,URINE NEGATIVE (NEG); PROTEIN,URINE NEGATIVE (NEG); UROBILINOGEN,URINE 0.2 EU/dL (0.2)
[2017-08-04 12:24] LABS: URINE SAMPLE TYPE CATH SPECIMEN
[2017-08-04] MEDS: BETAMET ACET/BETAMET NA PH 6 MG/1 ML - 5 ML IM SCH (13:21)
--- NOTE | 2017-08-04 17:36 | OB.PROGRES ---
Date and Time of Service: 08/04/17 @ 1115 Interval History: Pt presented labor and delivery today for her regularly scheduled NST for gestational diabetes. She reported to the nurse that she wasn't feeling very well, had some back pain and a FAIR that had lasted most of the weekend. She doesn 't think that she has been sakshi. Denies vag bleeding or gushes of fluid. Baby is maybe a little bit less active than normal. She has had some RUQ discomfort, but she thought it was due to the position of the baby. She had a BPP on the unit today and it was 8/8. Baby remains at the 94% overall. RAMON is 10-13. Head appears to be low in the pelvis. Objective - Cervical Exam Cervical Exam: FT/70/-1 per RN Cindy Lazcano [place]: No contractions noted, but maybe a little bit of mild irritability. Heart Rate: 130-140, reactive, no decels noted. Category 1 strip. Heart Rate Interpretation Category: Category I - Labs CBC and BMP: 08/04/17 09:18 08/04/17 09:18 - Vital Signs Last Taken Vital Signs: Vital Signs - Last Taken Temperature 98.2 F 08/04/17 09:02 Pulse Rate 99 08/04/17 14:00 Respiratory Rate 16 08/04/17 09:02 Blood Pressure 105/64 08/04/17 14:00 Pulse Ox 98 08/04/17 09:02 Assessment and Plan - Patient Problems (1) Headache Current Visit: Yes Status: Acute Code(s): R51 - Headache Qualifiers: Headache type: unspecified Headache chronicity pattern: acute headache Intractability: not intractable Qualified Code(s): R51 - Headache - Assessment / Plan Additional Assessment/Plan Details: -with pt's last , which was notable for labor at 35 4/7 weeks of twins, she had only elevated liver enzymes. Platelets were normal and she had no hemoconcentration or hemolysis. Her blood pressures were normal. She had no headaches or RUQ pain. She did have a 12 hour urine for protein, which was elevated according to the range for that test at that time. Because of her unclear clinical picture with her last and the twin gestation, she was not started on aspirin with this . -with the above in mind, she does have a FAIR now, but her blood pressures are very normal. A 24 hour urine is in process. We will recheck her gestational HTN labs at 2000 tonight. -with the possibility that she will deliver prior to 37 weeks, she will be administered a course of betamethasone, first dose given at 1300 today. -pt admitted for observation, labs and steroids overnoc.
[2017-08-04 20:00] LABS: Hematocrit [HCT] 39.2 % (37.0-47.0); Hemoglobin [HGB] 13.3 g/dL (12.0-16.0); MEAN CORPUSCULAR HEMOGLOBIN 30.8 PG (27-31); MEAN CORPUSCULAR HGB CONC 33.9 g/dL (33-37); MEAN CORPUSCULAR VOLUME 90.7 FL (81-99); MEAN PLATELET VOLUME 9.5 FL (7.4-12.2); RED BLOOD COUNT 4.32 10^6/uL (4.20-5.40)
[2017-08-04 20:09] LABS: BLOOD UREA NITROGEN 8 mg/dL (7-22); BUN/CREATININE RATIO 13.33 (6-20); SERUM ALBUMIN 3.5 g/dL (3.5-4.8); Uric Acid 4.5 mg/dl (2.5-6.2)
[2017-08-04] MEDS ORDERED: diphenhydrAMINE 25 MG CAPSULE PO PRN (20:49)
[2017-08-04] MEDS ORDERED: Prenatal Multivitamin Tab 1 TAB TAB PO SCH (21:00)
[2017-08-04] MEDS: glyBURIDE 5 MG TABLET PO SCH (21:04)
[2017-08-05 07:25] LABS: Hematocrit [HCT] 39.1 % (37.0-47.0); Hemoglobin [HGB] 13.3 g/dL (12.0-16.0); MEAN CORPUSCULAR HEMOGLOBIN 31.1 PG (27-31); MEAN CORPUSCULAR VOLUME 91.4 FL (81-99); MEAN PLATELET VOLUME 9.2 FL (7.4-12.2); RED BLOOD COUNT 4.28 10^6/uL (4.20-5.40)
[2017-08-05 07:36] LABS: BLOOD UREA NITROGEN 6 mg/dL (7-22); SERUM ALBUMIN 3.4 g/dL (3.5-4.8); Uric Acid 4.1 mg/dl (2.5-6.2)
[2017-08-05] MEDS ORDERED: Prenatal Multivitamin Tab 1 TAB TAB PO SCH (09:00)
[2017-08-05 09:22] VITALS: BP 115/60; RESP 16; TEMP 97.6; O2SAT 98
[2017-08-05] MEDS: glyBURIDE 5 MG TABLET PO SCH (09:27)
[2017-08-05] MEDS: BETAMET ACET/BETAMET NA PH 6 MG/1 ML - 5 ML IM SCH (13:41)
[2017-08-05 14:25] LABS: 24 HOUR URINE TOTAL VOLUME 3950 ML
--- NOTE | 2017-08-14 09:08 | OB.PROGRES ---
Date and Time of Service: 08/05/17 @ 0830 Interval History: Reports that she didn't sleep well at all last noc due to being uncomfortable and the monitoring. Baby is moving, but she reports that it is less than normal. Denies vag bleeding or gushes of fluid. Having some back pain, but it doesn't feel like contraction pain. Also c/o FAIR. Objective - Cervical Exam [place]: occasional irritability, occasional contractions. Heart Rate: reactive, category 1 tracing. Heart Rate Interpretation Category: Category I - Labs CBC and BMP: 08/05/17 07:20 08/05/17 07:20 - Vital Signs Last Taken Vital Signs: Vital Signs - Last Taken Temperature 97.6 F 08/05/17 07:15 Pulse Rate 77 08/05/17 07:15 Respiratory Rate 16 08/05/17 07:15 Blood Pressure 115/60 08/05/17 07:15 Pulse Ox 98 08/05/17 07:15 Assessment and Plan - Patient Problems (1) Headache Status: Acute Code(s): R51 - Headache Qualifiers: Headache type: unspecified Headache chronicity pattern: acute headache Intractability: not intractable Qualified Code(s): R51 - Headache - Assessment / Plan Additional Assessment/Plan Details: -pt is stable and her labs are stable. -received both doses of betamethasone. -NSt reactive. -will continue biweekly antepartum testing. Discharge Note: Admitting diagnosis: elevated liver enzymes, previous section, gestational diabetes Discharge diagnosis: same. Outcome: monitoring of status and labs. Disposition: home Diet: diabetic f/u: as scheduled on OB for antepartum testing and in the office for routine ob care.
== END 2017-08-05 14:00 | disposition home or self-care (01) ==
LOC: OBOP 08:12 → OBIP 08:12
PROVIDERS: ADMIT Family Medicine; ATTEND Family Medicine

== ENCOUNTER 2017-08-07 07:59 | Inpatient (IN) ==
[2017-08-07 08:22] LABS: Hematocrit [HCT] 39.1 % (37.0-47.0); Hemoglobin [HGB] 13.3 g/dL (12.0-16.0); MEAN CORPUSCULAR HEMOGLOBIN 31.1 PG (27-31); MEAN CORPUSCULAR VOLUME 91.6 FL (81-99); MEAN PLATELET VOLUME 9.4 FL (7.4-12.2); RED BLOOD COUNT 4.27 10^6/uL (4.20-5.40)
[2017-08-07 08:33] LABS: BLOOD UREA NITROGEN 9 mg/dL (7-22); SERUM ALBUMIN 3.6 g/dL (3.5-4.8); Uric Acid 4.4 mg/dl (2.5-6.2)
[2017-08-07] MEDS ORDERED: BUTORPHANOL TARTRATE 2 MG/1 ML VIAL IVP PRN (11:04)
[2017-08-07] MEDS ORDERED: MISOPROSTOL 200 MCG TABLET RECTAL PRN (11:04)
[2017-08-07] MEDS ORDERED: Nalbuphine Inj 20 MG/ML Ampule IVP PRN ×2 (11:04→21:40)
[2017-08-07] MEDS ORDERED: Lidocaine 1% 10 MG/ML - 20 ML VIAL SUBCUT PRN (11:04)
[2017-08-07] MEDS ORDERED: NORMAL SALINE 10 ML SYRINGE FLUSH IVP PRN ×2 (11:04→21:40)
[2017-08-07] MEDS ORDERED: Phenylephrine Inj 50 MCG in Normal Saline Flush 0.5 ML IVP PRN (11:04)
[2017-08-07] MEDS ORDERED: TERBUTALINE SULFATE 1 MG/1 ML SDV SUBCUT PRN (11:04)
[2017-08-07] MEDS ORDERED: ONDANSETRON 4 MG/2 ML VIAL IVP PRN (11:04)
[2017-08-07] MEDS ORDERED: diphenhydrAMINE 50 MG/1 ML VIAL IVP PRN (11:04)
[2017-08-07] MEDS ORDERED: ePHEDrine Inj 5 MG in Normal Saline Flush 1 ML IVP PRN (11:04)
[2017-08-07] MEDS ORDERED: Metoclopramide Inj 10 MG/2 ML VIAL IV PRN (11:04)
[2017-08-07] MEDS ORDERED: fentaNYL Inj 100 MCG/2 ML VIAL IV PRN (11:04)
[2017-08-07] MEDS ORDERED: CITRIC ACID/SODIUM CITRATE 30 ML CUP PO PRN (11:04)
[2017-08-07] MEDS ORDERED: LIDOCAINE HCL 2 % 10 ML JELLY URO-JECT TOPICAL PRN (11:04)
[2017-08-07] MEDS ORDERED: NALOXONE 0.4 MG/1 ML VIAL IVP PRN (11:04)
[2017-08-07] MEDS ORDERED: Carboprost Inj 250 MCG/ML AMP IM PRN (11:04)
[2017-08-07] MEDS ORDERED: LIDOCAINE W/ SODIUM BICARB 0.5 ML SYR SUBD PRN (11:04)
[2017-08-07] MEDS ORDERED: CefOXitin Inj 2 GM in Sodium Chloride 0.9% 100 ML IV PRN (11:04)
[2017-08-07] MEDS ORDERED: Naloxone Inj 0.01 MG in Normal Saline Flush 1 ML IVP PRN (11:04)
[2017-08-07] MEDS ORDERED: METHYLERGONOVINE MALEATE 0.2 MG/1 ML VIAL IM PRN (11:04)
[2017-08-07] MEDS ORDERED: OXYTOCIN 10 UNIT/1 ML IM PRN (11:04)
[2017-08-07] MEDS ORDERED: Famotidine Inj 20 MG in Normal Saline Flush 10 ML IVP PRN ×5 (11:04→21:40)
[2017-08-07] MEDS ORDERED: CALCIUM CARBONATE 500 MG (TUMS) CHEWABLE TABLET PO PRN ×2 (11:04→21:40)
[2017-08-07] MEDS ORDERED: Oxytocin 20 Units + LR 20 UNIT/1,000 ML BAG IV SCH ×2 (11:15→21:40)
[2017-08-07] MEDS: Lactated Ringers-OB Dept 1,000 ML PRIMARY IV SCH ×2 (13:41→18:10)
[2017-08-07 18:09] LABS: Hematocrit [HCT] 38.7 % (37.0-47.0); Hemoglobin [HGB] 13.2 g/dL (12.0-16.0); MEAN CORPUSCULAR HEMOGLOBIN 31.3 PG (27-31); MEAN CORPUSCULAR HGB CONC 34.1 g/dL (33-37); MEAN CORPUSCULAR VOLUME 91.7 FL (81-99); MEAN PLATELET VOLUME 9.1 FL (7.4-12.2); RED BLOOD COUNT 4.22 10^6/uL (4.20-5.40)
[2017-08-07 18:18] LABS: BLOOD UREA NITROGEN 8 mg/dL (7-22); BUN/CREATININE RATIO 13.33 (6-20); SERUM ALBUMIN 3.7 g/dL (3.5-4.8); Uric Acid 4.1 mg/dl (2.5-6.2)
--- NOTE | 2017-08-07 18:33 | DI ---
LIMITED OBSTETRICAL ULTRASOUND FOR BIOPHYSICAL PROFILE, 08/07/2017 4:35 PM Clinical History: Decreased movement. Previous Exam: 08/04/2017. Field date EDC Based on Early OB US: 09/09/2017. RAMON: 10.2 cm Heart Rate: 144 Respiration Score: 2 Fine Motor Score: 0 Gross Motor Score: 0 Amnionic Fluid Score: 2 Reading: Biophysical Profile Score: 4/8 The results of the study were called into the OB [facility] at 1825 hours.
[2017-08-07] MEDS ORDERED: Sodium Chloride 0.9% vial 10 ML ONE (19:09)
[2017-08-07] MEDS ORDERED: fentaNYL Inj 100 MCG/2 ML VIAL ONE (19:13)
[2017-08-07] MEDS ORDERED: DEXAMETHASONE PF 10 MG/1 ML VIAL IVP ONE (19:21)
[2017-08-07] MEDS ORDERED: ONDANSETRON 4 MG/2 ML VIAL IVP ONE (19:21)
[2017-08-07] MEDS ORDERED: BUPIVACAINE SPINAL 7.5 MG/1 ML - 2 ML IV ONE (19:39)
[2017-08-07] MEDS ORDERED: KETOROLAC 30 MG/1 ML VIAL ONE (20:13)
[2017-08-07] MEDS ORDERED: OXYTOCIN 10 UNIT/1 ML ONE (20:15)
--- NOTE | 2017-08-07 20:46 | CRNA.PROGR ---
Anesthesia Time - - Start date: 08/07/17 End date: 08/07/17 - Procedure/Recovery Time Anesthesia : Time In: 19:35 Anesthesia : Time Out: 20:42 Anesthesia : Total Time: 67 - Total Anesthesia Time Total Anesthesia Time (minutes): 67 - Other Weight: 103.873 kg Height: 5 ft 8 in Body Mass Index (BMI): 34.8 Physical Status: P2 Anesthesia Type: Spinal Block Obstetrics: C/S anesthesia only
--- NOTE | 2017-08-07 20:46 | CRNA.PROGR ---
Anesthesia Recovery Phase I - Post Anesthesia Evaluation Patient's Condition on Arrival in Phase I: Stable Patient's Condition on Arrival in Phase II: Stable Pain Level: 0
--- NOTE | 2017-08-07 20:47 | CRNA.PROGR ---
Post Anesthesia Phase II - Post Anesthesia Phase II Patient Stable and Discharged To: Med/Surg Care Assumed By Surgeon: Rosi Castro MD Temperature: 98.9 F Respiratory Rate: 18 Pulse Ox: 100 Total Fan Score at Discharge: 9
--- NOTE | 2017-08-07 20:48 | CRNA.PROCE ---
Central Neuraxis Block Placemt - - Safety Measures: Time Out Taken - - Type of Block: Subarachnoid Reason for Block: Surgical Moniters Used During Block: EKG, SPO2, NIBP Positioning: Sitting Skin Prep Used: ChloroPrep Draped: Yes Spinal Needle Used: 25 Margaret 80 mm Local Anesthetic - Enter Amount Used in Comment Field: 0.75 % Bupivacaine with Dextrose (ml): Yes (2ml) Additive Used - Enter Amount Used in Comment Field: Fentanyl (mcg): Yes (15mcg) Bioclusive Dressing Applied: No Anesthesia Time - Other Weight: 103.873 kg Height: 5 ft 8 in Body Mass Index (BMI): 34.8
[2017-08-07] MEDS ORDERED: glyBURIDE 5 MG TABLET PO ONE (21:00)
[2017-08-07] MEDS ORDERED: diphenhydrAMINE 25 MG CAPSULE PO PRN (21:40)
[2017-08-07] MEDS ORDERED: DIPH,PERTUSS,TET(ADACEL) VAC/PF 0.5 ML (Tdap) IM ONE (21:40)
[2017-08-07] MEDS ORDERED: Naloxone Inj 0.01 MG, Sodium Chloride 0.9% vial 1 ML IVP PRN ×2 (21:40)
[2017-08-07] MEDS ORDERED: LANOLIN HPA 40 GM TUBE TOPICAL PRN (21:40)
[2017-08-07] MEDS ORDERED: diphenhydrAMINE 50 MG/1 ML VIAL IV PRN (21:40)
[2017-08-07] MEDS ORDERED: KETOROLAC 15 MG/1 ML VIAL IVP SCH (21:40)
[2017-08-07] MEDS: HYDROmorphone 2 MG/1 ML IV PRN ×2 (22:29→23:25)
[2017-08-07] MEDS: oxyCODONE-ACETAMINOPHEN 5-325 TAB PO PRN (23:26)
--- NOTE | 2017-08-07 23:48 | OB.OP.NOTE ---
Operative Report Surgeon: Richy Castro MD Radiology Rn: Brett Bond MD Anesthesia Type: Regional Anesthesia Provider: Tre Mak CRNA Surgery Date: 08/07/17 Preoperative Diagnosis: Previous section with current worsening atypical pre-eclampsia, BPP of 4/10 and contractions Postoperative Diagnosis: same, delivered Procedure: repeat low transverse section with bilateral tubal ligation using Filshie clips. Complications: none Estimated Blood Loss (mL): 600 Urine Output (mL): 50 Fluids: 800 cc of LR Indications: We do not offer vaginal after section trials at our facility and the patient did not desire this. She is requesting a repeat section. The pt was admitted for suspected atypical pre-eclampsia on 08/07. Her labs showed continued upwards trending of her AST and ALT. Her blood pressures remained normal, as did her platelets. She was slightly hemoconcentrated at 13.3. She had a 7/10 headache for the past several days. Her NST upon admission was never quite reactive, though there were small periods of moderate variability. A biophysical profile was ordered for this reason, which returned as 4/8. Around the time that the real estate listing consultant finished her biophysical profile, she was noted to be having contractions every 2-4 minutes that the pt was feeling in her back and rating as increasing stronger. She was adequately hydrated. Her cervical exam showed no change. Given the constellation of issues noted above, the pt was taken for repeat section with bilateral tubal ligation. Findings: male infant, in cephalic presentation, amniotic fluid containing moderate amount of meconium. Normal uterus, tubes and ovaries. Description of Procedure: The patient was taken to the operating room where spinal anesthesia was found to be adequate. She was then prepared and draped in the normal sterile fashion in the dorsal supine position with a leftward tilt. A Pfannenstiel skin incision was then made with the scalpel and carried through to the underlying layer of fascia with Bovie. Extensive subcutaneous scar tissue was noted. The fascia was incised in the midline and the incision extended laterally with the Bovie. The superior aspect of the fascial incision was then grasped with Marcos clamps, elevated and the underlying rectus muscles dissected off bluntly. Attention was then turned to the inferior aspect of this incision which, in a similar fashion, was grasped with Marcos clamps and the rectus muscles dissected off both bluntly and with the Bovie. The rectus muscles were then in the midline, and the peritoneum identified, tented up, and entered in a blunt fashion. The peritoneal incision was then extended superiorly and inferiorly with good visualization of the bladder. The Manuel retractor was then inserted and the vesicouterine peritoneum was identified. The lower uterine segment incised in a transverse fashion with the scalpel. The uterine incision was then extended laterally in a blunt fashion. The 's head was delivered atraumatically. The nose and mouth were suctioned with the bulb suction and the cord clamped and cut. The was handed off to the awaiting nurse. Cord gases and cord blood were sent for analysis. The placenta was then removed manually; the uterus exteriorized, and cleared of all clots and debris. The uterine incision was repaired with 0 Vicryl in a running, locked fashion. Because hemostasis was assured, a second layer of O- vicryl wasn't used. The isthmic portion of each fallopian tube was identified and then a Filshie clip placed for the pt's requested tubal ligation. No bleeding was noted from either tube. The peritoneal cavity was then copiously irrigated with warm saline. The uterus was returned to the abdomen. The paracolic gutters were copiously irrigated with warm saline and a second look at the uterine incision continued to reveal excellent hemostasis. The peritoneum was closed with 3-0 Vicryl. The fascia was reapproximated with 0 PDS in a running fashion. The subcutaneous space was irrigated with copiously with warm saline and the closed first with 3-0 Vicryl and then more superficially with Insorb absorbable sutures. The skin was reapproximated with Steri-Strips and a Silverlon dressing applied. Fundal massage was completed with no clots in vaginal vault. The patient tolerated the procedure well. Sponge, lap, and needle counts were correct x2. Mefoxin was given preoperatively less than one hour prior to incision time. The patient was taken to the recovery room in stable condition.
[2017-08-08] MEDS: D5-LR 1,000 ML PRIMARY IV SCH ×2 (00:44→09:24)
[2017-08-08] MEDS: HYDROmorphone 2 MG/1 ML IV PRN ×4 (00:44→05:08)
[2017-08-08] MEDS: KETOROLAC 15 MG/1 ML VIAL IVP SCH ×3 (01:33→14:03)
[2017-08-08] MEDS: ONDANSETRON 4 MG/2 ML VIAL IVP PRN ×2 (02:08→05:45)
[2017-08-08] MEDS: oxyCODONE-ACETAMINOPHEN 5-325 TAB PO PRN ×5 (03:22→20:35)
[2017-08-08] MEDS: Senna/Docusate Tab 1 TAB TAB PO SCH ×2 (08:31→20:35)
[2017-08-08] MEDS: Prenatal Multivitamin Tab 1 TAB TAB PO SCH (08:31)
[2017-08-08 09:26] LABS: Hematocrit [HCT] 32.8 % (37.0-47.0); MEAN CORPUSCULAR HEMOGLOBIN 31.2 PG (27-31); MEAN CORPUSCULAR HGB CONC 33.5 g/dL (33-37); MEAN CORPUSCULAR VOLUME 92.9 FL (81-99); MEAN PLATELET VOLUME 9.2 FL (7.4-12.2); RED BLOOD COUNT 3.53 10^6/uL (4.20-5.40)
[2017-08-08] MEDS: Lactated Ringers-OB Dept 1,000 ML PRIMARY IV SCH (09:26)
[2017-08-08 09:41] LABS: BLOOD UREA NITROGEN 7 mg/dL (7-22); BUN/CREATININE RATIO 11.66 (6-20); SERUM ALBUMIN 2.6 g/dL (3.5-4.8); Uric Acid 4.1 mg/dl (2.5-6.2)
[2017-08-08] MEDS: IBUPROFEN 800 MG TABLET PO PRN (15:51)
[2017-08-08] MEDS ORDERED: IBUPROFEN 800 MG TABLET PO PRN (21:08)
[2017-08-09] MEDS: IBUPROFEN 800 MG TABLET PO PRN ×3 (00:53→17:24)
[2017-08-09] MEDS: oxyCODONE-ACETAMINOPHEN 5-325 TAB PO PRN ×5 (00:54→21:24)
[2017-08-09] MEDS ORDERED: IBUPROFEN 800 MG TABLET PO PRN (02:00)
[2017-08-09 05:16] LABS: Hematocrit [HCT] 33.1 % (37.0-47.0); Hemoglobin [HGB] 10.8 g/dL (12.0-16.0); MEAN CORPUSCULAR HEMOGLOBIN 30.5 PG (27-31); MEAN CORPUSCULAR HGB CONC 32.6 g/dL (33-37); MEAN CORPUSCULAR VOLUME 93.5 FL (81-99); MEAN PLATELET VOLUME 9.6 FL (7.4-12.2); RED BLOOD COUNT 3.54 10^6/uL (4.20-5.40)
[2017-08-09 05:33] LABS: BLOOD UREA NITROGEN 8 mg/dL (7-22); SERUM ALBUMIN 2.6 g/dL (3.5-4.8); Uric Acid 4.2 mg/dl (2.5-6.2)
[2017-08-09] MEDS: Prenatal Multivitamin Tab 1 TAB TAB PO SCH (11:51)
[2017-08-09] MEDS: Senna/Docusate Tab 1 TAB TAB PO SCH ×2 (11:51→21:23)
--- NOTE | 2017-08-09 20:21 | OB.PROGRES ---
Subjective Post Op Day: 1 Pain Management: PO Baires Catheter: No Flatus: Yes Diet: Regular Feeding Method: Exculsively (pumping breast milk and feeding it to in bottle.) Ambulating: Yes Objective - General General Appearance: POSITIVE: No Acute Distress, Cooperative - Cardiovacular Cardiovascular Exam: POSITIVE: RRR, No Murmur Edema: +2 Pedal Edema Extremities: Negative Ck's - Bilaterally - Respiratory Respiratory Exam: POSITIVE: Clear to Auscultation - Bilaterally, Breathing Non Labored - Abdomen Bowel Sounds: Hypoactive Abdominal Wound Assessment: Silverlone Dressing Assesstment / Plan (1) Status post repeat low transverse section Current Visit: Yes Status: Acute (2) delivery (maternal condition) Current Visit: Yes Status: Acute (3) Pre-eclampsia affecting childbirth Current Visit: Yes Status: Acute (4) S/P tubal ligation Current Visit: Yes Status: Acute Assessment / Plan: -LFT's have trended downwards; pt's had has completely resolved. Pt with atypical presentation of pre-eclampsia. -pain is well controlled with percocet and toradol. -breast feeding. -rh+ -rubella immune. -d/c home in 2-3 days.
--- NOTE | 2017-08-09 20:29 | OB.PROGRES ---
Subjective Post Op Day: 2 Pain Management: PO Baires Catheter: No Flatus: Yes Diet: Regular Feeding Method: Exculsively Ambulating: Yes Concerns / Additional Information: Blood sugars are normal. Blood pressures remain normal. Minimal lochia except for this afternoon, when she filled a pad. She had been lying down for 1-2 hours prior to this pad being changed and she has been more active today, which may have contributed to her heavier bleeding. Objective - General General Appearance: POSITIVE: No Acute Distress, Cooperative - Cardiovacular Cardiovascular Exam: POSITIVE: RRR, No Murmur Edema: +1 Pedal Edema Extremities: Negative Ck's - Bilaterally - Respiratory Respiratory Exam: POSITIVE: Clear to Auscultation - Bilaterally, Breathing Non Labored - Abdomen Bowel Sounds: Hypoactive Abdominal Wound Assessment: [place] Dressing Assesstment / Plan (1) Status post repeat low transverse section Current Visit: Yes Status: Acute (2) delivery (maternal condition) Current Visit: Yes Status: Acute (3) Pre-eclampsia affecting childbirth Current Visit: Yes Status: Acute (4) S/P tubal ligation Current Visit: Yes Status: Acute Assessment / Plan: routine cares. -blood pressures remain normal. Labs continue to trend downwards. -blood sugars remain normal. -breast bleeding/pumping and feeding baby from bottle. -rh positive. -rubella immune. -possible d/c home tomorrow.
[2017-08-10] MEDS: oxyCODONE-ACETAMINOPHEN 5-325 TAB PO PRN ×3 (01:46→12:41)
[2017-08-10] MEDS: IBUPROFEN 800 MG TABLET PO PRN ×2 (01:47→12:41)
[2017-08-10] MEDS: Senna/Docusate Tab 1 TAB TAB PO SCH (08:07)
[2017-08-10] MEDS: Prenatal Multivitamin Tab 1 TAB TAB PO SCH (08:07)
[2017-08-10 09:44] VITALS: BP 119/79; RESP 18; TEMP 97.9; O2SAT 99
--- NOTE | 2017-08-10 14:12 | DCSUMMARY ---
Hospitalization Summary Admit Date: 08/07/17 Discharge Date: 08/10/17 Primary Diagnosis:: Atypical pre-eclampsia Secondary Diagnosis:: contractions, Gestational Diabetes Primary Surgery and Date: Repeat section with bilateral tubal ligation on 08/07/17. Delivery Type: Hospital Course: Pt was admitted for worsening FAIR, abnormal liver function tests that were continuing to trend upwards. She had a BPP which was 4/10. She also then started having fairly regular, painful contractions. Given the above constellation, she was taken for repeat section. / Postop Complications: Pt's blood pressures and blood sugars remained normal during her stay. She was started on percocet and motrin for pain control, which worked very well. She was pumping and feeding the baby pumped breast milk. She was voiding without difficulty. At the time of discharge, she hadn't had a bowel movement, which she states is normal for her. Her abdomen was soft and nondistended. She was requesting discharge home since the baby was doing so well. Complications: Initially, the baby required minimal CPAP for support and was then transitioned to nasal cannula. He was weaned to room air 4 hours after delivery. An IV was started for hypoglycemia; he received D10 at maintenance for 24 hours and then this was successfully weaned off as well. He was nippling normally and having normal voids and stools. Since he was doing so well, mom requested discharge home and this is reasonable. Exam - Vitals Vital Signs: Vital Signs Temperature 97.9 F Temperature Source Oral Pulse Rate [Apical] 66 Pulse Rate [Pulse Oximeter] 94 Pulse Rate 94 Respiratory Rate 18 Blood Pressure [Right Arm] 119/79 Blood Pressure 111/66 Pulse Ox 99 Oxygen Flow Rate RA Oxygen Delivery Method Room Air Height 5 ft 8 in Weight 229 lb - General General Appearance: No Acute Distress, Cooperative - Head Head Exam: Normal Inspection - Neck Neck Exam: Normal Inspection - Respiratory Respiratory Exam: POSITIVE: Clear to Auscultation - Bilaterally, Breathing Non Labored - Cardiovascular Cardiovascular Exam: POSITIVE: RRR, No Murmur - GI/Abdominal GI/Abdominal Exam: POSITIVE: Normal Bowel Sounds, Non Tender, Non Distended, Soft - Extremities Extremities Exam: POSITIVE: Normal Inspection, Full ROM, Normal Capillary Refill - Neurological Neurological Exam: POSITIVE: Alert, Oriented x 3 - Psychiatric Psychiatric Exam: POSITIVE: Normal Affect, Normal Mood - Integumentary Integumentary Exam: POSITIVE: Normal Color, Warm, Dry Patient Problems - Patient Problem List (1) Pre-eclampsia affecting childbirth Current Visit: Yes Status: Acute Code(s): O14.94 - Unspecified pre-eclampsia , complicating childbirth Category: Medical (2) delivery (maternal condition) Current Visit: Yes Status: Acute Code(s): O60.10X0 - labor with delivery, unspecified trimester, not applicable or unspecified Category: Medical (3) S/P tubal ligation Current Visit: Yes Status: Acute Code(s): Z98.51 - Tubal ligation status Category: Surgical (4) Status post repeat low transverse section Current Visit: Yes Status: Acute Code(s): Z98.891 - History of uterine scar from previous surgery Category: Medical (5) Gestational diabetes mellitus (GDM) Current Visit: No Status: Acute Code(s): O24.419 - Gestational diabetes mellitus in , unspecified control Qualifiers: Gestational diabetes mellitus control: oral hypoglycemic-controlled Trimester: third trimester Qualified Code(s): O24.415 - Gestational diabetes mellitus in , controlled by oral hypoglycemic drugs Category: Medical
[2017-08-10] MEDS ORDERED: IBUPROFEN 800 MG TABLET PO SCH (14:45)
[2017-08-10] MEDS ORDERED: oxyCODONE-ACETAMINOPHEN 5-325 TAB PO SCH (14:45)
[2017-08-10] MEDS ORDERED: Senna/Docusate Tab 1 TAB TAB PO SCH (21:00)
== END 2017-08-10 16:20 | disposition home or self-care (01) | DRG 766 ==
LOC: OBOP 07:59 → OBIP 11:05
PROVIDERS: ADMIT Family Medicine; ATTEND Family Medicine